=== PATIENT | male | born 1945 | race Caucasian/White ===

== ENCOUNTER 2024-01-19 22:23 | Inpatient (IN) | payer OTHER, SELFPAY ==
[2024-01-19] VITALS (7 sets, daily range): BP systolic 99–127; BP diastolic 47–75; BMI 43.8
[2024-01-19 19:53] LABS: % Basophils 1.1 % (0-2); % Eosinophils 3.4 % (0-6); % Immature Granulocytes 0.4 % (0-0.5); % Monocytes 13.9 % (1.7-9.3); % Neutrophils 64.2 % (42.2-75.2); Absolute Basophils 0.1 10^3/uL (0-0.2); Absolute Eosinophils 0.2 10^3/uL (0-0.7); Absolute Lymphocytes 0.8 10^3/uL (1.2-3.4); Absolute Monocytes 0.7 10^3/uL (0.1-0.6); Hematocrit 34.9 % (39.0-52.0); Hemoglobin 11.5 g/dL (13.0-18.0); Mean Corpuscular Hgb 32.4 pg (27.0-31.0); Mean Corpuscular Volume 98.3 fL (80.0-94.0); Nucleated Red Blood Cells % 0 % (-); Platelet Count 108 10^3/uL (130-400); Red Blood Cell Count 3.55 10^6/uL (4.70-6.10); Red Cell Dist. Width 13.8 % (11.5-14.5); White Blood Cell Count 4.7 10^3/uL (4.8-10.8)
--- NOTE | 2024-01-19 20:00 | ED.GENMED ---
History of Present Illness
General
Chief Complaint: Weakness
Source: patient and family
Exam Limitations: none
Time Seen by Provider: 01/19/24 19:34
Nursing documentation reviewed up to this point in time: agreed with
Travel History
Have you had any contact with someone who has COVID-19?: No
Do you have any symptoms of coronavirus? Fever > 100 degrees, chills, cough, shortness of breath, sore throat, loss of taste or smell, muscle aches, or headache?: No
History of Present Illness
History of Present Illness:
78-year-old male from family via EMS for fatigue trouble ambulating dyspnea on exertion weak with falling trouble getting up
Diabetic hypertensive hypercholesterolemia prostate pacemaker said a right total knee replacement a week or so ago had steroid injection of his left knee by his PCP family states his symptoms preceded this event
Apparently he ambulates about 10 feet he gets cramps in his thighs and gets very dyspneic
He urinates frequently has had increasing leg edema unsure if he is gaining weight
Not currently on a diuretic
Past History
Past History
ED Past Medical History: Arrthythmia, HTN, Hypercholesterolemia and NIDDM
ED Past Surgical History: Cardiac (Pacemaker)
Social History
Tobacco: Non-smoker
Alcohol: None
Drug: None
Personal:
Living: with family
Employment: Retired
Review of Systems
Review of Systems
All Other Systems: Not applicable
Constitutional: Reports fatigue; Denies fever
EENT: Reports no symptoms
Respiratory: Reports trouble breathing
Cardiac: Reports no symptoms; Denies syncope
ABD/GI: Reports no symptoms
: Reports frequency
Musculoskeletal: Reports joint pain and muscle stiffness
Skin: Reports no symptoms
Neurological: Reports weakness
Endocrine: Reports no symptoms
Hematologic/Lymphatic: Reports no symptoms
Phy Exam
Physical Exam
Physical Exam:
Physical Exam
General: Obese slightly dyspneic elderly
Neck: No jaundice
Heart: Regular
Lungs: Bibasilar crackles
Abdomen: Obese
Neuro: alert and oriented moves all
Skin: no rash
Psychiatric: well kept. interactive and cooperative
Extremities: Lower extremity edema as per
Scores
Heart Failure Risk
Heart Failure Risk Score: Yes
History of Stroke or TIA: No
History of intubation for respiratory distress: No
Heart rate on ED arrival >/= 110: No
SaO2 <90% on arrival on room air: No
HR >/=110 during 3min walk test (or too ill to perform test): Yes
ECG has acute ischemic changes: No
Urea >/=12mmol/L (BUN 33.6mg/dL): No
Serum CO2>/=35mmol/L: No
Troponin I or T elevated to AL Level (0.4mg/dL): No
NT-proBNP >/=5,000ng/L (5,000pg/ml): No
HF Risk Score: 2
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
Course
Orders/Labs/Results
Orders:
Orders
01/19/24 19:42
BNP [NT-proBNP] Urgent
Complete Blood Count/With Diff Urgent
Comprehensive Metabolic Panel Urgent
Creatine Phosphokinase Urgent
Comment: ADDON
Magnesium Urgent
Comment: ADDON
01/19/24 19:53
Troponin I Urgent
CR Chest - 2 Views Urgent
Comment:
Reason For Exam: sob
01/19/24 19:54
Add On- LAB Urgent
Tests Added?: magnesium, cpk
Electrocardiogram (*1) Urgent
Reason for Study: Shortness of Breath
EKG- Treatment ONCE
Urinalysis Reflex To Culture Urgent
01/19/24 21:00
Furosemide [Lasix] 60 mg IV NOW STA
Abnormal Lab Results
01/19/24
19:42
WBC 4.7 L 10^3/uL
(4.8-10.8)
RBC 3.55 L 10^6/uL
(4.70-6.10)
Hgb 11.5 L g/dL
(13.0-18.0)
Hct 34.9 L %
(39.0-52.0)
MCV 98.3 H fL
(80.0-94.0)
MCH 32.4 H pg
(27.0-31.0)
Plt Count 108 L 10^3/uL
(130-400)
MPV 11.0 H fL
(7.4-10.4)
Absolute Lymphs (auto) 0.8 L 10^3/uL
(1.2-3.4)
Absolute Monos (auto) 0.7 H 10^3/uL
(0.1-0.6)
Lymphocytes % 17.0 L %
(20.5-51.1)
Monocytes % 13.9 H %
(1.7-9.3)
Chloride 108 H mmol/L
(98-107)
BUN 44 H mg/dl
(9-20)
Glucose 123 H mg/dl
(70-99)
Total Protein 6.1 L g/dl
(6.3-8.2)
Albumin 3.4 L g/dl
(3.5-5.0)
01/19/24 19:42
01/19/24 19:42
Vital Signs
Initial and Last Documented VS:
Initial Vital Signs
Pulse Resp Pulse Ox
77 22 97
01/19/24 19:27 01/19/24 19:27 01/19/24 19:27
Last Documented Vital Signs
Temp Pulse Resp BP Pulse Ox
98.1 F 62 17 124/63 97
01/19/24 19:29 01/19/24 19:30 01/19/24 19:30 01/19/24 19:29 01/19/24 19:31
MDM/Problems Addressed
Differential Diagnosis Includes:
Heart failure deconditioning anemia electrolyte abnormality UTI
MDM/Problems Addressed:
Fatigue shortness of breath dyspnea exertion
Chronic conditions affecting care:
Diabetes hypertension obesity
Acute Exacerbation and/or Progression of Chronic Illness:
Diabetes hypertension obesity
*Radiology
Radiology exam reviewed: preliminary read by ED provider
*Pulse Oximetry
Patient hypoxic: no
*Senior Center Director Interpretation
Rate: normal
Interpretation: normal
Heart Rate: 78
Rhythm: ventricular paced
*Critical Care Note
Total Time (30-74mins, 75-104mins- exclusive of procedures): Not Applicable
Update Note
Update Note:
Update chest x-ray noted proBNP noted not in her system does give some history of heart failure dyspnea on exertion and leg edema not on a diuretic currently symptoms are fairly severe in the sense that he cannot ambulate or function believe will be
beneficial to better over the hospital start him on diuretic
ED Attending Note
-
Portions of this chart may have been created with voice recognition software.� Occasional wrong word or��sound alike� substitutions may have occurred due to the inherent limitations of voice recognition software.
Discharge Plan
Departure
Prescriptions:
No Action
multivitamin Tablet
1 tab PO DAILY
pioglitazone 45 mg Tablet
45 mg PO DAILY
simvastatin 40 mg Tablet
40 mg PO HS
levothyroxine 75 mcg Tablet
75 mcg PO DAILY
tamsulosin 0.4 mg Capsule
0.4 mg PO HS
aspirin 81 mg Tablet,Chewable
81 mg PO DAILY
lisinopril 5 mg Tablet
5 mg PO DAILY
oxybutynin chloride 5 mg Tablet
5 mg PO DAILY
finasteride 5 mg Tablet
5 mg PO DAILY
omeprazole 20 mg Tablet,Delayed Release (Dr/Ec)
20 mg PO DAILY
metoprolol succinate 50 mg Capsule,Sprinkle,Er 24hr
50 mg PO DAILY
Interventions
Interventions:
*Risk Screen - Suicide Last Done: 01/19/24 19:29
*General Assessment Last Done: 01/19/24 19:30
*Neglect/Abuse Screening Last Done: 01/19/24 19:29
ED- Fall Risk Assessment Last Done: 01/19/24 19:29
*ED COVID-19 Vaccine History Last Done: 01/19/24 19:29
ED- Cardiac Assessment Last Done: 01/19/24 19:31
ED- Neurological Assessment Last Done: 01/19/24 19:31
ED- Pulmonary Assessment Last Done: 01/19/24 19:31
Discharge Date and Time
Print Language: VIETNAMESE
[2024-01-19 20:20] LABS: ALT (SGPT) 18 U/L (0-50); AST (SGOT) 24 U/L (17-59); Albumin 3.4 g/dl (3.5-5.0); Alkaline Phosphatase 99 U/L (38-126); Blood Urea Nitrogen 44 mg/dl (9-20); Carbon Dioxide 29 mmol/L (22-30); Chloride 108 mmol/L (98-107); Creatine Phosphokinase 59 U/L (55-170); Estimated Creatinine Clearance 69 ml/min; Glucose 123 mg/dl (70-99); Magnesium 1.7 mg/dl (1.6-2.3); Sodium 138 mmol/L (135-145); Total Bilirubin 0.5 mg/dl (0.2-1.3); Total Protein 6.1 g/dl (6.3-8.2); eGFR 55.88
[2024-01-19 20:30] LABS: NT-proBNP 4420 pg/ml
[2024-01-19] MEDS: LASIX 60 MG IV (21:36)
--- NOTE | 2024-01-19 21:42 | HPS.HSE ---
Family Physician
-
Family Physician: Caesar Peñaloza
Chief Complaint
-
soB with exertion
History of Present Illness
78M No prior visit to DH , HX HTN, HLD, T2DM , Hypothyroid s/p Rt TKR a week ago pw dyspnic on walking 10 feet , increasing Sagrario edema and gaining wt. No prir HX CHF. Not on diuretics at home.
Per daughter
Lives alone
Ambulatory function has tristian progressively limited by SoB for a couple of months
Recently dyspneic with minmal exertion
Denied CP and palpitation
Relatively hypotensive with SB on BB
Elevated pro BNP
CXR suggestive of interstitial Pul edema
@ ER : IV Lasix 60 x1
Medical History
Past Medical History
Past Medical History: Reports HTN, Hypercholesterolemia and Hypothyroidism
Past Surgical History: Reports Orthopedic (Rt TKR )
Social History
Tobacco: Non-smoker
Alcohol: None
Drug: None
Personal:
Living: With Family
Family History
Family History: Not pertinent
Allergies / Home Medications
Allergies reflects when Allergies were last updated in [facility].
Home Medications with original date entered in [facility]
Allergy/Medication List:
Allergies
Allergy/AdvReac Type Severity Reaction Status Date / Time
No Known Allergies Allergy Unverified 01/19/24 19:23
Home Medications
aspirin 81 mg chewable tablet 81 mg PO DAILY 01/19/24
finasteride 5 mg tablet 5 mg PO DAILY 01/19/24
levothyroxine 75 mcg tablet 75 mcg PO DAILY 01/19/24
lisinopril 5 mg tablet 5 mg PO DAILY 01/19/24
metoprolol succinate 50 mg capsule sprinkle, ext. release 24 hr 50 mg PO DAILY 01/19/24
multivitamin 1 tab PO DAILY 01/19/24
omeprazole 20 mg tablet,delayed release 20 mg PO DAILY 01/19/24
oxybutynin chloride 5 mg tablet 5 mg PO DAILY 01/19/24
pioglitazone 45 mg tablet 45 mg PO DAILY 01/19/24
simvastatin 40 mg tablet 40 mg PO HS 01/19/24
tamsulosin 0.4 mg capsule 0.4 mg PO HS 01/19/24
Review of Systems
-
Constitutional: Reports No Symptoms
EENT: Reports No Symptoms
Respiratory: Reports Trouble Breathing
Cardiac: Denies Chest Pain, Diaphoresis, Palpitations or Syncope
Abdomen/GI: Reports No Symptoms
: Reports No Symptoms
Musculoskeletal: Reports Other (b/l Sagrario swelling )
Skin: Reports No Symptoms
Neurological: Reports No Symptoms
Endocrine: Reports No Symptoms
Hematologic/Lymphatic: Reports No Symptoms
Psych: Reports No Symptoms
Physical Exam
Vital Signs
Vital Signs
Temp Pulse Resp BP Pulse Ox
98.1 F 68 18 122/47 97
01/19/24 19:29 01/19/24 21:36 01/19/24 20:30 01/19/24 21:36 01/19/24 20:30
Physical Exam
General: No Apparent Distress and Comfortable
HEENT: NormoCephalic, Anicteric, Moist mucous membranes and Atraumatic
Respiratory: Crackles (bibasilar )
Cardiac: S1/S2, Regular Rhythm and Bradycardia; No Murmur
Breast: Deferred by me
GI: Soft, Non Tender, Non Distended and Normal Bowel Sounds
Rectal: Deferred by Provider
Genito-urinary: Deferred by me
Skin: Warm
Neuro: AO x 3
Psych: Calm
Laboratory Results
-
01/19/24 19:42
01/19/24 19:42
Laboratory Results
Total Bilirubin 0.5 mg/dl (0.2-1.3) 01/19/24 19:42
AST 24 U/L (17-59) 01/19/24 19:42
ALT 18 U/L (0-50) 01/19/24 19:42
Alkaline Phosphatase 99 U/L (38-126) 01/19/24 19:42
Data Reviewed
-
Diagnostic Radiology: Report Reviewed by me
Lab Data: Labs Reviewed by me
Impression/Plan
-
Data
WCC 4.7 Hgb 11.5 Plt 108
Na 138 K 5 Cl 108 CO2 29
BUN 44
Cr 1.3
e GFR 55
BG 123
nl LFTs
pro BNP 4420 - no prior data
Pending TPNI
EKG: pending
CXR:
Small bilateral pleural effusions.
Cardiomegaly
findings suggesting mild interstitial pulmonary edema.
No prior admission to
ASSESSMENT & PLAN
New onset CHF type unknown
Elevated pro BNP, Cardiomegaly and Small bilateral pleural effusions.
- Agree with IV Lasix and continue
- cont. STATE ASSESSED PROPERTIES DIRECTOR Lisinopril and Metoprolol succinate
- daily Wt, IOs and BMP
- ECHO in AM
- OP sleep study
- CBC card consult
Pancytopenia: MDS ?? - patient and family unaware
- no prior data to compare
- trend CBC
- To consider OP Heme eval
Essential HTN
- Relative hypotension
- cont. STATE ASSESSED PROPERTIES DIRECTOR Lisinopril and Metoprolol succinate - with hold parameters
HLD
- cont. ASA and Simvastatin
DMT2
- on Pioglitazone
- add ISS low
Hypothyroid on LT4
- check TSH
Rt TKR yrs ago
S/P IAS of Lt knee weeks ago by PCP
- PT/OT
BPH on Finasteride and tamsulosin
DVT Px: LMWH
Code: Full
IP TLM
[2024-01-19 21:48] LABS: Urine Albumin Negative (Neg - Trace); Urine Bilirubin Negative (Negative); Urine Character Clear (Clear); Urine Color Yellow; Urine Glucose Negative (Negative); Urine Ketone Negative (Negative); Urine Leukocyte Trace (Negative); Urine Nitrite Negative (Negative); Urine Occult Blood Negative (Negative); Urine Specific Gravity 1.015 (<1.030); Urine Urobilinogen Negative (Neg - 1+)
[2024-01-19 21:58] LABS: Troponin I < 0.012 ng/ml
[2024-01-19 21:59] LABS: Urine Red Blood Cell None Seen /HPF (0-2)
[2024-01-20] VITALS (21 sets, daily range): BP systolic 80–155; BP diastolic 37–122; PULSE 65; O2SAT 97–98; BMI 43.7
[2024-01-20] MEDS: LIPITOR PO (01:00)
[2024-01-20] MEDS: FLOMAX PO (01:00)
[2024-01-20 06:52] LABS: % Basophils 1.2 % (0-2); % Eosinophils 3.9 % (0-6); % Immature Granulocytes 0.4 % (0-0.5); % Lymphocytes 18.5 % (20.5-51.1); % Monocytes 13.4 % (1.7-9.3); % Neutrophils 62.6 % (42.2-75.2); Absolute Basophils 0.1 10^3/uL (0-0.2); Absolute Eosinophils 0.2 10^3/uL (0-0.7); Absolute Lymphocytes 0.9 10^3/uL (1.2-3.4); Absolute Monocytes 0.7 10^3/uL (0.1-0.6); Absolute Neutrophils 3.2 10^3/uL (1.4-6.5); Hematocrit 35.5 % (39.0-52.0); Hemoglobin 11.4 g/dL (13.0-18.0); Mean Corp Hgb Conc. 32.1 g/dL (33.0-37.0); Mean Corpuscular Hgb 31.8 pg (27.0-31.0); Mean Corpuscular Volume 99.2 fL (80.0-94.0); Mean Platelet Volume 11.6 fL (7.4-10.4); Nucleated Red Blood Cells % 0 % (-); Platelet Count 111 10^3/uL (130-400); Red Blood Cell Count 3.58 10^6/uL (4.70-6.10); Red Cell Dist. Width 13.9 % (11.5-14.5); White Blood Cell Count 5.1 10^3/uL (4.8-10.8)
[2024-01-20 07:27] LABS: Blood Urea Nitrogen 45 mg/dl (9-20); Carbon Dioxide 31 mmol/L (22-30); Chloride 105 mmol/L (98-107); Estimated Creatinine Clearance 74 ml/min; Glucose 90 mg/dl (70-99); Potassium 4.8 mmol/L (3.5-5.1); Sodium 139 mmol/L (135-145); eGFR > 60.00
[2024-01-20 07:54] LABS: Glucose - Point of Care 88 mg/dl (70-99)
--- NOTE | 2024-01-20 08:30 | CARDSERVLU ---
Echocardiogram with Lumason completed after protocol screening completed. Allergies verified.
Patent IV site: ___Rt AC__
IV site flushed with 0.9% NaCl pre and post administration.
Diluted bolus method utilized to enhance visualization of ventricular lanier.
Total volume given: ___6_ mL
Patient tolerated all procedures well without complications.
[2024-01-20 08:34] LABS: Free T4 1.28 ng/dl (0.78-2.19)
[2024-01-20 08:46] LABS: Glycohemoglobin (HgbA1c) 6.2 % (4.0-5.6)
[2024-01-20] MEDS: LOW STRENGTH ASPIRIN 81 MG PO (09:09)
[2024-01-20] MEDS: ACTOS 45 MG PO (09:09)
[2024-01-20] MEDS: DITROPAN 5 MG PO (09:10)
[2024-01-20] MEDS: LASIX 60 MG IV (09:10)
[2024-01-20] MEDS: SYNTHROID 75 MCG PO (09:10)
[2024-01-20] MEDS: PROTONIX 40 MG PO (09:10)
[2024-01-20] MEDS: TOPROL XL 50 MG PO (09:10)
[2024-01-20] MEDS: ZESTRIL 5 MG PO (09:10)
[2024-01-20] MEDS: DESENEX/MITRAZOL/ZEASORB 1 APPLIC TOPICAL ×2 (09:10→19:57)
[2024-01-20] MEDS: PROSCAR 5 MG PO (09:10)
--- NOTE | 2024-01-20 11:43 | W.PN.HOSP.TC ---
Today's Communication/Plan
-
see plan
Assessment / Plan
Assessment / Plan
ASSESSMENT & PLAN
New onset CHF type unknown
Elevated pro BNP, Cardiomegaly and Small bilateral pleural effusions.
- Agree with IV Lasix and continue
- cont. DIRECTOR MULTIMEDIA Lisinopril and Metoprolol succinate
- daily Wt, IOs and BMP
- ECHO - ef 55%
- OP sleep study
- CBC card consult
Pancytopenia: MDS ?? - patient and family unaware
- no prior data to compare
- trend CBC
- To consider OP Heme eval, pt agreeable to this
Essential HTN
- Relative hypotension
- cont. DIRECTOR MULTIMEDIA Lisinopril and Metoprolol succinate - with hold parameters
HLD
- cont. ASA and Simvastatin
DMT2
- on Pioglitazone
- add ISS low
Hypothyroid on LT4
- check TSH
Rt TKR yrs ago
S/P IAS of Lt knee weeks ago by PCP
- PT/OT
BPH on Finasteride and tamsulosin
DVT Px: LMWH
Code: Full
IP TLM
Anticipated Discharge: > 48 hours
Subjective/Interval History
-
Date of Service: January 20, 2024
pt states interval improvement from yesterday
Objective Data
-
Labs:
Laboratory Results
01/20/24
05:43
WBC 5.1
Hgb 11.4 L
Hct 35.5 L
Plt Count 111 L
Sodium 139
Potassium 4.8
Chloride 105
Carbon Dioxide 31 H
BUN 45 H
Creatinine 1.2
Glucose 90
Calcium 9.0
Vital Signs:
Vital Signs
Temp Pulse Resp BP Pulse Ox
98.5 F 69 13 155/74 98
01/20/24 07:00 01/20/24 06:45 01/20/24 06:45 01/20/24 06:00 01/20/24 09:32
I&O
01/19/24 01/20/24 01/21/24
06:59 06:59 06:59
Output Total 750 / 750
Balance -750 / -750
Review of Systems
-
History Source: Patient
All other systems: Reviewed and negative
Physical Exam
-
General: Well Developed and No Apparent Distress
HEENT: Normocephalic, Atraumatic and Moist Mucous Membranes
Respiratory: Decreased Breath Sounds
Cardiac: Regular Rhythm and S1/S2; Negative Murmur, Rub or Gallop
GI: Soft, Nontender, Nondistended and Normal Bowel Sounds; Negative Organomegaly
Rectal: Deferred by Provider
Musculoskeletal: No Clubbing, No Cyanosis, Edema, Right Lower Extrem and Edema, Left Lower Extrem
Skin: Negative Rash
Neuro: Nonfocal/Grossly Intact
Data Reviewed
-
Diagnostic Radiology: Report Reviewed by me
Ultrasound: Report Reviewed by me
--- NOTE | 2024-01-20 11:46 | CON.CAR ---
Addendum entered and electronically signed by Iris Terrell MD 01/20/24 15:04:
will need outpatient sleep study
Addendum entered and electronically signed by Iris Terrell MD 01/20/24 15:02:
I saw and examined the patient.
The PROGRAM RESEARCH SPECIALIST's note was reviewed and I agree with the note.
Comment: 78yo m with poor follow up presents for ambulatory dysfunction and sob. His daugther is at the bed side and states he stays in bed almost all day, not really getting up and if he does it is with his walker to go to the bathroom only. Had a
ppm in 2016 but hasn't followed up---he hates '[place] and is done going there'.on exam he is morbidly obese and has cyanotic lips. His lungs are cta and rrr no m/r/g. 2+ pitting edema. His echo reviewed with normal lvef, on my review of images I
don't appreciate apical hypokinesis. His device shows NSVT and PAF.
For his HFpEF, we will add GDMT as able and diuresis with IV lasix bid, Dry weigth TBD
PAF: C2V is a 5(age, htn, dm, CHF). Will recommend DOAC, stop asa
NSVT: outpatient stress testing
Medtronic PPM: enroll in outpatient device clinic.
CM c/s for pricing of medicaitons.
will follow
Original Note:
Consultation
Consultation Request
Date/Time Consultation Requested: 01/20/24 1140
Date/Time Consultation Performed: 01/20/24 1240
Requesting Provider: Dr. Mcelroy
Performing Provider: Mariely YUEN for Dr. Terrell
Reason for Consultation: CHF
Medical History
-
Chief Complaint: ambulatory dysfunction, falls
History of Present Illness:
78 y/o male with hypertension, dyslipidemia, diabetes 2, hypothyroidism, hx right knee replacement, and pacemaker. 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 He
is here for evaluation since he has been having ambulatory dysfunction with falls (knees buckle and he brings himself to ground and cannot get up). He recently had a cortisone shot in his left knee. We are consulted for CHF. He has had LAMAR and LE
edema for months. He does not regularly checks weights, but thinks he is normally under 300 lbs. He is currently 321 lbs.
Past Medical History
Past Medical History: HTN, Hypercholesterolemia, Hypothyroidism, NIDDM and Other (pacemaker)
Past Surgical History: Other (hx knee replacement)
Social History
Tobacco: Former Smoker
Alcohol: None
Living: With Family (lives with son)
Family History
Family History: CAD (dad)
Allergies / Home Medications
Allergy/AdvReac Type Severity Reaction Status Date / Time
No Known Allergies Allergy Unverified 01/19/24 19:23
�Medication �Instructions �Recorded �Confirmed �Type
aspirin 81 mg chewable tablet 81 mg PO DAILY 01/19/24 01/19/24 History
finasteride 5 mg tablet 5 mg PO DAILY 01/19/24 01/19/24 History
levothyroxine 75 mcg tablet 75 mcg PO DAILY 01/19/24 01/19/24 History
lisinopril 5 mg tablet 5 mg PO DAILY 01/19/24 01/19/24 History
metoprolol succinate 50 mg capsule 50 mg PO DAILY 01/19/24 01/19/24 History
sprinkle, ext. release 24 hr
multivitamin 1 tab PO DAILY 01/19/24 01/19/24 History
omeprazole 20 mg tablet,delayed 20 mg PO DAILY 01/19/24 01/19/24 History
release
oxybutynin chloride 5 mg tablet 5 mg PO DAILY 01/19/24 01/19/24 History
pioglitazone 45 mg tablet 45 mg PO DAILY 01/19/24 01/19/24 History
simvastatin 40 mg tablet 40 mg PO HS 01/19/24 01/19/24 History
tamsulosin 0.4 mg capsule 0.4 mg PO HS 01/19/24 01/19/24 History
Review of Systems
-
History Source: Patient
All other systems: Negative unless noted
Respiratory: Trouble Breathing
Musculoskeletal: Edema
Neurological: Weakness
Physical Exam
Vital Signs
Temp Pulse Resp BP Pulse Ox
98.5 F 69 13 155/74 98
01/20/24 07:00 01/20/24 06:45 01/20/24 06:45 01/20/24 06:00 01/20/24 09:32
Lab Results
01/20/24 05:43
01/20/24 05:43
Troponin I < 0.012 ng/ml 01/19/24 21:07
Qhu-F-Kjgfmnperzu Pept 4420 pg/ml 01/19/24 19:42
Physical Exam
General: Well Developed and No Apparent Distress
HEENT: Normocephalic and Anicteric
Respiratory: Clear and Non Labored Respirations
Cardiac: Regular Rhythm and Peripheral Edema (+1-2 BLE edema)
Skin: Warm and Dry
Neuro: AO x 3
Psych: Calm
Impression / Plan
-
Ambulatory dysfunction:
-PT/OT consulted
Acute HFpEF:
-BNP 4420, CXR suggestive of excess fluid as below
-echo as below
-agree with IV Lasix, which requires intensive monitoring- will change to BID
-CM consult for SGLT2 inhibitor pricing
Pacemaker:
-records requested to find out more- should have this interrogated. I told him he definitely needs cardiac follow-up and pacemaker needs routine monitoring.
HTN:
-monitor with diuresis
Data Reviewed
-
EKG: Tracing Personally Visualized and interpreted (AV paced)
Radiology: Report Reviewed by me (CXR: Small bilateral pleural effusions. Cardiomegaly, with findings suggesting mild interstitial pulmonary edema.)
Medical Tests (Nuc Med, Echo etc): Report Reviewed by me (Echo 01/20/24: Mildly dilated LV (RICCO 59) with mild LVH and EF 50-55%. Cannot exclude mild apical hypokinesis 2. Aortic sclerosis without stenosis 3. Borderline pulmonary artery
pressures (PA systolic estimate 35-40 mmHg))
Labs: Labs Reviewed by me
[2024-01-20 13:40] LABS: Glucose - Point of Care 97 mg/dl (70-99)
--- NOTE | 2024-01-20 14:43 | W.PN.UPDATE ---
Addendum entered and electronically signed by WILFRID Ross 01/20/24 15:15:
Discussed OAC with patient/family, who are agreeable. CM to clarence Ramirez. The device interrogation is in the chart. ASA was just taking for primary prevention per patient.
Original Note:
Update Note
Progress Note Update
Medtronic pacemaker interrogated. Functioning appropriately. PAF and NSVT noted. For PAF, will start Eliquis for OAC. Will stop aspirin. For NSVT, continue metoprolol, and OP stress test.
--- NOTE | 2024-01-20 15:12 | CM ---
Addendum entered by Kailee Thurman 01/20/24 15:46:
Gave daughter a list of family and internal medicine doctors. She maybe looking for a new PCP for her father.
Original Note:
Reviewed chart. Met with Mr. Perez, his daughter and [id number] to review dischrge plans. He states prior to admission his son resides with him in a spilt level home with one step to enter. He states he has three steps own the the rec.
room, four steps to the main area and seven step to the bedroom/full bathroom. He states prior to admission he ambulates with a walker and independent with adls. He states he has a walker at home. He states he has [facility] in the distant past and went
to [facility] for SNF/Rehab. in 2016. He has a prescription plan ans uses [facility]. Telephone call to his insurance to check co-pays for Farxiga, Jardiand and Eliquis. Farxiga is $47. 00 a month, Jardiance is $47.00 a month and Abd
Eliquis is $47.00 a month. He can use the one month free coupon for Farxiga, Jardiance and Eliquis. Placed the Eliquis coupon in the red discharge folder. Will need to see his current functional level to see if he will have any skilled care needs.
Medical work-up in progress. The discharge plan is to return home with his son and [facility] Services when medically stable.
--- NOTE | 2024-01-20 15:33 | PTCARENOTE ---
Received patient from ED holding area to room 2249, daughter was at the bedside. Patient oriented to room and plan of care. Grossly incontinent of urine when PT came to work with her. Required assist of two to transfer from the bed to the chair.
Family in visiting, call brown within reach.
[2024-01-20] MEDS: LASIX IV (16:36)
--- NOTE | 2024-01-20 16:46 | PTCARENOTE ---
Patient sitting oob in the chair, happy to be oob. BP running in the 80's/50's, patient is asymptomatic. Rechecked with a manual BP which was 88/55. Patient is due for IV Katlin silvestre WEB SYSTEMS DEVELOPER notified, will hold for now.
[2024-01-20 18:10] LABS: Glucose - Point of Care 95 mg/dl (70-99)
[2024-01-20] MEDS: ELIQUIS 5 MG PO (19:55)
--- NOTE | 2024-01-20 21:29 | PTCARENOTE ---
Pt rec'd at change of shift, av paced on telemetry. lungs clear but diminished in bases. Eliquis teaching given. Pt grossly incont of urine, depends changed. turned and rep in bed. call brown within reach
[2024-01-20 22:07] LABS: Glucose - Point of Care 110 mg/dl (70-99)
[2024-01-20] MEDS: LIPITOR 20 MG PO (22:18)
[2024-01-20] MEDS: FLOMAX 0.400000000000000022 MG PO (22:18)
[2024-01-21] VITALS (12 sets, daily range): BP systolic 73–148; BP diastolic 42–89; PULSE 65; O2SAT 96; BMI 43.7; BMI 40.8
[2024-01-21 05:09] LABS: % Basophils 1.4 % (0-2); % Eosinophils 4.8 % (0-6); % Immature Granulocytes 0.2 % (0-0.5); % Lymphocytes 25.2 % (20.5-51.1); % Monocytes 14.7 % (1.7-9.3); % Neutrophils 53.7 % (42.2-75.2); Absolute Basophils 0.1 10^3/uL (0-0.2); Absolute Eosinophils 0.2 10^3/uL (0-0.7); Absolute Lymphocytes 1.1 10^3/uL (1.2-3.4); Absolute Monocytes 0.7 10^3/uL (0.1-0.6); Absolute Neutrophils 2.4 10^3/uL (1.4-6.5); Hematocrit 35.2 % (39.0-52.0); Hemoglobin 11.4 g/dL (13.0-18.0); Mean Corp Hgb Conc. 32.4 g/dL (33.0-37.0); Mean Corpuscular Volume 98.9 fL (80.0-94.0); Mean Platelet Volume 11.3 fL (7.4-10.4); Nucleated Red Blood Cells % 0 % (-); Platelet Count 107 10^3/uL (130-400); Red Blood Cell Count 3.56 10^6/uL (4.70-6.10); Red Cell Dist. Width 13.8 % (11.5-14.5); White Blood Cell Count 4.4 10^3/uL (4.8-10.8)
[2024-01-21 05:38] LABS: Blood Urea Nitrogen 47 mg/dl (9-20); Calcium 8.8 mg/dl (8.4-10.2); Carbon Dioxide 30 mmol/L (22-30); Chloride 103 mmol/L (98-107); Estimated Creatinine Clearance 68 ml/min; Glucose 97 mg/dl (70-99); Potassium 4.4 mmol/L (3.5-5.1); Sodium 137 mmol/L (135-145); eGFR 55.88
[2024-01-21 08:13] LABS: Glucose - Point of Care 109 mg/dl (70-99)
--- NOTE | 2024-01-21 08:23 | W.PN.CD ---
Today's Communication / Plan
-
Cont diuresis
Started SGLT2i
Consider MRA tomorrow
Impression / Plan
-
Ambulatory dysfunction:
-PT/OT consulted
Acute HFpEF:
-BNP 4420, CXR suggestive of excess fluid as below
-echo as below
-agree with IV Lasix, which requires intensive monitoring- will change to BID
-started empagliflozin
- consider MRA tomorrow
AF new
- continue Eliquis, HRs controlled
Pacemaker:
-records requested to find out more- should have this interrogated. I told him he definitely needs cardiac follow-up and pacemaker needs routine monitoring.
HTN:
-monitor with diuresis
TTE January 20, 2024: CONCLUSIONS
1. Mildly dilated LV (RICCO 59) with mild LVH and EF 50-55%. Cannot exclude
mild apical hypokinesis
2. Aortic sclerosis without stenosis
3. Borderline pulmonary artery pressures (PA systolic estimate 35-40 mmHg)
Physical Exam
Vital Signs/Labs
Vital Signs
Temp Pulse Resp BP Pulse Ox
98.2 F 54 14 148/76 93
01/21/24 07:48 01/21/24 05:00 01/21/24 07:48 01/21/24 04:46 01/21/24 04:45
01/20/24 01/21/24 01/22/24
06:59 06:59 06:59
Actual Weight 322 lb 12.108 oz 322 lb 4 oz
01/21/24 04:51
01/21/24 04:50
Magnesium 1.7 mg/dl (1.6-2.3) 01/19/24 19:42
Free T4 1.28 ng/dl (0.78-2.19) 01/20/24 05:43
01/19/24
19:42
Nco-I-Kvssgucdrpo Pept 4420
LAB Results
01/19/24
21:07
Troponin I < 0.012
Physical Exam
Constitutional: No acute distress
EENT: Anicteric
Cardiovascular: Rhythm & rate is regular and Pedal edema present
Respiratory: Respiratory effort normal and Lungs clear to auscul.
GI: Soft
Neuro/Psych: AO x 3
Data Reviewed
-
Date of Service: January 21, 2024
EKG: Tracing Personally Visualized and interpreted (paced)
Echo: Report Reviewed by me
Labs: Labs Reviewed by me
[2024-01-21] MEDS: PROTONIX 40 MG PO (08:26)
[2024-01-21] MEDS: LASIX 60 MG IV ×2 (08:26→17:02)
[2024-01-21] MEDS: TOPROL XL 50 MG PO (08:26)
[2024-01-21] MEDS: DITROPAN 5 MG PO (08:26)
[2024-01-21] MEDS: DESENEX/MITRAZOL/ZEASORB 1 APPLIC TOPICAL ×2 (08:29→20:36)
[2024-01-21] MEDS: ACTOS 45 MG PO (08:29)
[2024-01-21] MEDS: SYNTHROID 75 MCG PO (08:29)
[2024-01-21] MEDS: ZESTRIL 5 MG PO (08:29)
[2024-01-21] MEDS: PROSCAR 5 MG PO (08:29)
[2024-01-21] MEDS: ELIQUIS 5 MG PO ×2 (08:29→20:35)
[2024-01-21] MEDS: JARDIANCE 10 MG PO (09:26)
[2024-01-21 11:54] LABS: Glucose - Point of Care 126 mg/dl (70-99)
--- NOTE | 2024-01-21 14:12 | W.PN.HOSP.TC ---
Today's Communication/Plan
-
cont diuresis.
Assessment / Plan
Assessment / Plan
ASSESSMENT & PLAN
New onset CHF type unknown
Elevated pro BNP, Cardiomegaly and Small bilateral pleural effusions.
- Agree with IV Lasix and continue
- cont. MIDDLEWARE ARCHITECT Lisinopril and Metoprolol succinate
- daily Wt, IOs and BMP
- ECHO - ef 55%
- OP sleep study
- CBC card consult appreciated
PAF - new dx
started on eliquis.
Pancytopenia: MDS ?? - patient and family unaware
- no prior data to compare
- trend CBC
- To consider OP Heme eval, pt agreeable to this
Essential HTN
- Relative hypotension
- cont. MIDDLEWARE ARCHITECT Lisinopril and Metoprolol succinate - with hold parameters
HLD
- cont. ASA and Simvastatin
DMT2
- on Pioglitazone
- add ISS low
Hypothyroid on LT4
Rt TKR yrs ago
S/P IAS of Lt knee weeks ago by PCP
- PT/OT
BPH on Finasteride and tamsulosin
DVT Px
Code: Full
IP TLM
Anticipated Discharge: > 48 hours
Subjective/Interval History
-
Date of Service: January 21, 2024
pt states LE edema continues to improve.
Objective Data
-
Labs:
Laboratory Results
01/21/24 01/21/24
04:50 04:51
WBC 4.4 L
Hgb 11.4 L
Hct 35.2 L
Plt Count 107 L
Sodium 137
Potassium 4.4
Chloride 103
Carbon Dioxide 30
BUN 47 H
Creatinine 1.3
Glucose 97
Calcium 8.8
Vital Signs:
Vital Signs
Temp Pulse Resp BP Pulse Ox
98.2 F 63 18 124/88 95
01/21/24 11:42 01/21/24 11:42 01/21/24 11:42 01/21/24 08:29 01/21/24 11:42
I&O
01/20/24 01/21/24 01/22/24
06:59 06:59 06:59
Intake Total 720 / 720 360 / 360
Output Total 750 / 750 600 / 600
Balance -750 / -750 120 / 120 360 / 360
Review of Systems
-
History Source: Patient
All other systems: Reviewed and negative
Physical Exam
-
General: Well Developed and No Apparent Distress
HEENT: Normocephalic, Atraumatic and Moist Mucous Membranes
Respiratory: Clear to Auscultation
Cardiac: Regular Rhythm and S1/S2; Negative Murmur, Rub or Gallop
GI: Soft, Nontender, Nondistended and Normal Bowel Sounds; Negative Organomegaly
Rectal: Deferred by Provider
Musculoskeletal: No Clubbing, No Cyanosis, Edema, Right Lower Extrem and Edema, Left Lower Extrem
Skin: Negative Rash
Neuro: Nonfocal/Grossly Intact
Data Reviewed
-
Labs: Labs Reviewed by me, Discussed with Patient and Discussed with Family
[2024-01-21 17:07] LABS: Glucose - Point of Care 108 mg/dl (70-99)
--- NOTE | 2024-01-21 17:44 | PTCARENOTE ---
Rec't pt this AM. AAO x3. OOB x2 with walker into bathroom and chair. BP low this afternoon. Notified WILFRID Mcdaniel. OK to give Lasix 60mg IV if BP greater than 90. After approx 30min BP improved to 107 systolic. lasix given. Pt incontinent of
large amts of urine. Unable to use urinal. Report feeling better, remains with some weakness but improving. Pt educated on heart failure extensively plus fall risk factors.
--- NOTE | 2024-01-21 21:54 | PTCARENOTE ---
Pt rec'd at change of shift with family at bedside. No c/o pain. b/p 70's systolic, retaken twice. pt denied feeling dizzy, AV paced on telemetry. bedrest maintained. B/p improved to 90's systolic. Pt grossly incontinent of urine. partial bath given.
[2024-01-21 22:13] LABS: Glucose - Point of Care 104 mg/dl (70-99)
[2024-01-21] MEDS: FLOMAX 0.400000000000000022 MG PO (22:17)
[2024-01-21] MEDS: LIPITOR 20 MG PO (22:17)
[2024-01-22 03:47] VITALS: BP 130/70
[2024-01-22 04:14] LABS: % Basophils 1.3 % (0-2); % Eosinophils 4.4 % (0-6); % Immature Granulocytes 0.2 % (0-0.5); % Lymphocytes 21.4 % (20.5-51.1); % Monocytes 14.1 % (1.7-9.3); % Neutrophils 58.6 % (42.2-75.2); Absolute Basophils 0.1 10^3/uL (0-0.2); Absolute Eosinophils 0.2 10^3/uL (0-0.7); Absolute Lymphocytes 1.2 10^3/uL (1.2-3.4); Absolute Monocytes 0.8 10^3/uL (0.1-0.6); Absolute Neutrophils 3.2 10^3/uL (1.4-6.5); Hematocrit 38.5 % (39.0-52.0); Hemoglobin 12.3 g/dL (13.0-18.0); Mean Corp Hgb Conc. 31.9 g/dL (33.0-37.0); Mean Corpuscular Hgb 31.5 pg (27.0-31.0); Mean Corpuscular Volume 98.7 fL (80.0-94.0); Mean Platelet Volume 11.1 fL (7.4-10.4); Nucleated Red Blood Cells % 0 % (-); Platelet Count 116 10^3/uL (130-400); Red Cell Dist. Width 13.8 % (11.5-14.5); White Blood Cell Count 5.5 10^3/uL (4.8-10.8)
[2024-01-22 04:37] LABS: Blood Urea Nitrogen 56 mg/dl (9-20); Calcium 9.2 mg/dl (8.4-10.2); Carbon Dioxide 33 mmol/L (22-30); Chloride 97 mmol/L (98-107); Estimated Creatinine Clearance 43 ml/min; Glucose 108 mg/dl (70-99); Potassium 4.2 mmol/L (3.5-5.1); Sodium 138 mmol/L (135-145); eGFR 33.32
--- NOTE | 2024-01-22 06:35 | W.PN.HOSP.TC ---
Today's Communication/Plan
-
.
Assessment / Plan
Assessment / Plan
Physical Exam
-
General: Well Developed and No Apparent Distress, obese.
HEENT: Normocephalic, Atraumatic and Moist Mucous Membranes
Respiratory: limited, no rales.
Cardiac: S1S2
GI: Soft, Nontender, Nondistended and Normal Bowel Sounds
Rectal: No rectal bleeding
Musculoskeletal: No Clubbing, No Cyanosis, Edema, mild in both legs
Skin: Negative Rash
Neuro: Nonfocal/Grossly Intact
Psych: no agitation
ASSESSMENT & PLAN
# Acute HFrEF
Echo showed LVEF 50-55%
s/p Lasix TX
He presented with elevated pro BNP, Cardiomegaly and Small bilateral pleural effusions.
- Holding some BP& Lasix today due to Low BP and FELIX
- OP sleep study
- CBC card consult appreciated
PAF - new dx
started on Eliquis.
# FELIX. 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
Could be related to low BP
Will also rule out retention, placed bladder scan protocol and Order renal US
Patient denies history of prostate disease. He has 3 medications, finasteride, oxybutynin, Flomax given to him by his a primary care doctor.
# Upon admission he was noted to have low platelets, anemia and leukopenia. Currently his white count is normal. This seems to be consistent with underlying liver disease more than MDS
Will check abdominal ultrasound for hepatic steatosis /organomegaly
Can follow-up with hematology in the office
#Essential HTN
Hypotensive overnight. Hold medications , okay to give beta-blockers
HLD
- cont. ASA and Simvastatin
DMT2
-Hold Pioglitazone because of renal insufficiency
- add ISS low
Hypothyroid on LT4
Rt TKR yrs ago
S/P IAS of Lt knee weeks ago by PCP
- PT/OT
BPH on Finasteride and tamsulosin
DVT Px
Code: Full
Total time spent to see the patient, examine the patient on the floor, review data and lab results, discuss treatment plan with patient, nursing staff around 55 minutes.
Anticipated Discharge: > 48 hours
Subjective/Interval History
-
Date of Service: January 22, 2024
No chest pain
No sob
No fevers
Objective Data
-
Labs:
Laboratory Results
01/22/24
03:56
WBC 5.5
Hgb 12.3 L
Hct 38.5 L
Plt Count 116 L
Sodium 138
Potassium 4.2
Chloride 97 L
Carbon Dioxide 33 H
BUN 56 H
Creatinine 2.0 H
Glucose 108 H
Calcium 9.2
Vital Signs:
Vital Signs
Temp Pulse Resp BP Pulse Ox
98 F 64 20 130/70 92
01/22/24 03:47 01/22/24 04:00 01/22/24 03:47 01/22/24 03:47 01/21/24 22:22
I&O
01/20/24 01/21/24 01/22/24
06:59 06:59 06:59
Intake Total 720 / 720 700 / 700
Output Total 750 / 750 600 / 600 700 / 700
Balance -750 / -750 120 / 120 0 / 0
[2024-01-22 07:36] VITALS: BP 96/53
[2024-01-22 08:06] LABS: Glucose - Point of Care 107 mg/dl (70-99)
[2024-01-22] MEDS: PROSCAR 5 MG PO (08:14)
[2024-01-22] MEDS: ELIQUIS 5 MG PO ×2 (08:14→20:51)
[2024-01-22] MEDS: DESENEX/MITRAZOL/ZEASORB 1 APPLIC TOPICAL ×2 (08:14→20:51)
[2024-01-22] MEDS: DITROPAN 5 MG PO (08:14)
[2024-01-22] MEDS: PROTONIX 40 MG PO (08:14)
[2024-01-22] MEDS: SYNTHROID 75 MCG PO (08:17)
--- NOTE | 2024-01-22 08:36 | W.PN.CD ---
Addendum entered and electronically signed by Shailesh Spears MD 01/22/24 08:46:
-
-
I ordered NS IVF 750 ml over 4 hours
-
-
Original Note:
Today's Communication / Plan
-
Hold meds
Trend Cr/BUN
Monitor K and tele
Impression / Plan
-
New Acute FELIX
- Severe
- Hold meds
- May be from too aggressive diuresis
Ambulatory dysfunction
- per medicine
Acute HFpEF
- Meds all hold for FELIX
- Later likely use low dose loop diuretic, MRA, and SGLT inhibitor
- Later move GERALD-I to either ARNI or ARB
- Goal weight not determined
PAF
- [id number] at least 4 (HF, HTN, age1)
- Now on Eliquis
- Rate not an issue as he has second degree AV block
MDT pacer
- Rhythm now sinus with second degree AV block and almost all V paced
- Leads Ok
- Battery about 2 or so years
- MVP mode on, but mostly V paced
- Tele with dropped beats c/w MVP
HTN
Morbid obesity
- BMI 40.8
Subjective:
Denies CP or dyspnea
Physical Exam
Vital Signs/Labs
Vital Signs
Temp Pulse Resp BP Pulse Ox
98.5 F 66 20 96/53 94
01/22/24 07:33 01/22/24 07:36 01/22/24 07:33 01/22/24 07:36 01/22/24 07:33
01/21/24 01/22/24 01/23/24
06:59 06:59 06:59
Actual Weight 146.17 kg 136.305 kg
01/22/24 03:56
01/22/24 03:56
Magnesium 1.7 mg/dl (1.6-2.3) 01/19/24 19:42
Free T4 1.28 ng/dl (0.78-2.19) 01/20/24 05:43
01/19/24
19:42
Blk-I-Ctnqjofriot Pept 4420
LAB Results
01/19/24
21:07
Troponin I < 0.012
Physical Exam
Constitutional: No acute distress
EENT: Anicteric
Cardiovascular: Rhythm & rate is regular and Pedal edema present (mild)
Respiratory: Respiratory effort normal and Lungs clear to auscul.
GI: Soft and Distention absent
Neuro/Psych: Alert
Data Reviewed
-
Date of Service: January 22, 2024
--- NOTE | 2024-01-22 09:19 | PTCARENOTE ---
Assumed care of pt from night RN. Pt received awake and alert, sitting up in bed. VSs, CM shows A/V pacing, POX 94% on RA. Bladder scan done as ordered = 121 ml's after large amount of incontinence. Pt denies any pain or discomfort at this time.
To US for Renal study.
[2024-01-22] MEDS: NSS 1000 IV (10:29)
--- NOTE | 2024-01-22 10:34 | PTCARENOTE ---
Saline bolus given as per MAR as ordered.
[2024-01-22 11:52] LABS: Glucose - Point of Care 137 mg/dl (70-99)
[2024-01-22 11:59] VITALS: BP 104/60
--- NOTE | 2024-01-22 14:18 | CM ---
Reviewed chart. Met with Mr. Perez and his daughter to review discharge plans. Reviewed SNF/Rehab. with them. Gave him the SNF list to review. He has selected [facility] and [facility] . Referral sent to [facility] and [facility] to check
on bed availability. He will need pre-cert with his insurance. Medical work-up in progress. The discharge plan is to go to SNF/Rehab. if bed available and approved by insurance when medically stable.
--- NOTE | 2024-01-22 14:52 | PN.CDI ---
Addendum entered and electronically signed by Judd Martinez MD 01/22/24 15:01:
Acute HFrEF
Original Note:
CDI
- -
CDI:
Physician Documentation Request
Admit Date: 01/19/24 22:23
Dear Doctor Michelle,
Patient admitted with acute CHF.
01/21 PN, 'Acute HFrEF ....Echo showed LVEF 50-55%.'
01/20 Cardiology note, 'Acute HFpEF....TTE January 20, 2024: CONCLUSIONS 1. Mildly dilated LV (RICCO 59) with mild LVH and EF
50-55%.
Due to conflicting documentation, please clarify in your note the type of CHF being treated:
Acute diastolic CHF
Acute systolic CHF
Other
Use of terms such as suspected, likely, concern for, or probable (associated with a specific diagnosis that is being evaluated, monitored, or treated as if it exists) are acceptable and can be coded in the inpatient setting, when documented at the
time of discharge.
Thank you,
Kimberly ROSADO,RN,CCDS
CDI Specialist
Available via [place] text
Please use your independent medical judgment in providing your response.
[2024-01-22 15:34] VITALS: BP 120/61
[2024-01-22 16:23] LABS: Glucose - Point of Care 91 mg/dl (70-99)
[2024-01-22] MEDS: TOPROL XL 50 MG PO (17:42)
[2024-01-22 19:26] VITALS: BP 105/52
[2024-01-22 21:47] LABS: Glucose - Point of Care 90 mg/dl (70-99)
[2024-01-22] MEDS: LIPITOR 20 MG PO (22:40)
[2024-01-22] MEDS: FLOMAX 0.400000000000000022 MG PO (22:40)
[2024-01-22 22:44] VITALS: BP 117/64
--- NOTE | 2024-01-22 23:52 | PTCARENOTE ---
Pt with no c/o pain. 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 Grossly incontinent of large amt of urine. skin with moisture redness in groin folds. Miconazole powder applied. Pt repositioned in bed with pillows.
[2024-01-23] VITALS (10 sets, daily range): BP systolic 104–133; BP diastolic 55–98; PULSE 64–65; O2SAT 96; BMI 40.4
[2024-01-23 04:42] LABS: % Eosinophils 4.9 % (0-6); % Immature Granulocytes 0.2 % (0-0.5); % Lymphocytes 21.7 % (20.5-51.1); % Monocytes 13.2 % (1.7-9.3); Absolute Basophils 0.1 10^3/uL (0-0.2); Absolute Eosinophils 0.2 10^3/uL (0-0.7); Absolute Lymphocytes 1.1 10^3/uL (1.2-3.4); Absolute Monocytes 0.7 10^3/uL (0.1-0.6); Absolute Neutrophils 2.9 10^3/uL (1.4-6.5); Hematocrit 37.8 % (39.0-52.0); Hemoglobin 11.8 g/dL (13.0-18.0); Mean Corp Hgb Conc. 31.2 g/dL (33.0-37.0); Mean Corpuscular Volume 99.2 fL (80.0-94.0); Mean Platelet Volume 11.1 fL (7.4-10.4); Nucleated Red Blood Cells % 0 % (-); Platelet Count 107 10^3/uL (130-400); Red Blood Cell Count 3.81 10^6/uL (4.70-6.10); Red Cell Dist. Width 13.6 % (11.5-14.5); White Blood Cell Count 4.9 10^3/uL (4.8-10.8)
[2024-01-23 05:08] LABS: Blood Urea Nitrogen 52 mg/dl (9-20); Carbon Dioxide 31 mmol/L (22-30); Chloride 99 mmol/L (98-107); Estimated Creatinine Clearance 50 ml/min; Glucose 107 mg/dl (70-99); Potassium 4.3 mmol/L (3.5-5.1); Sodium 137 mmol/L (135-145)
--- NOTE | 2024-01-23 06:26 | W.PN.HOSP.TC ---
Today's Communication/Plan
-
.
Assessment / Plan
Assessment / Plan
Physical Exam
-
General: Well Developed and No Apparent Distress, obese.
HEENT: Normocephalic, Atraumatic and Moist Mucous Membranes
Respiratory: limited, no rales.
Cardiac: S1S2
GI: Soft, Nontender, Nondistended and Normal Bowel Sounds
Rectal: No rectal bleeding
Musculoskeletal: No Clubbing, No Cyanosis, Edema, mild in both legs
Skin: Negative Rash
Neuro: Nonfocal/Grossly Intact
Psych: no agitation
ASSESSMENT & PLAN
# Acute HFrEF
Echo showed LVEF 50-55%
s/p Lasix TX
He presented with elevated pro BNP, Cardiomegaly and Small bilateral pleural effusions.
- Held BP& Lasix due to Low BP and FELIX. Can resume Lasix today
- OP sleep study
- CBC card consult appreciated
PAF - new dx
started on Eliquis.
# Obesity BMI 40
sedentary lifestyle.
Counseled pt to loose weight. Obesity impacts his health negatively.
# FELIX. 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
FELIX due to low BP
Creatinine is coming down to 1.7
US of the kidneys showed no hydronephrosis
Placed bladder scan protocol
Patient denied history of prostate disease. He has 3 medications, finasteride, oxybutynin, Flomax given to him by his a primary care doctor.
# Upon admission he was noted to have low platelets, anemia and leukopenia. Currently his white count is normal. This seems to be consistent with underlying liver disease more than MDS
Abdominal ultrasound did not show hepatic steatosis /organomegaly. He might need liver scan as OP. for now, c/w monitoring, follow-up with hematology in the office
#Essential HTN
Not more hypotension, resume Lasix, c/w BB.
HLD
- cont. ASA and Simvastatin
DMT2
- Held Pioglitazone because of renal insufficiency
- add ISS low
Hypothyroid on LT4
Rt TKR yrs ago
S/P IAS of Lt knee weeks ago by PCP
- PT/OT
BPH on Finasteride and tamsulosin
DVT Px
Code: Full
Total time spent to see the patient, examine the patient on the floor, review data and lab results, discuss treatment plan with patient, nursing staff around 57 minutes.
Anticipated Discharge: 24 - 48 hours
Subjective/Interval History
-
Date of Service: January 23, 2024
No chest pain
No sob
No abd pain
Objective Data
-
Labs:
Laboratory Results
01/23/24
04:26
WBC 4.9
Hgb 11.8 L
Hct 37.8 L
Plt Count 107 L
Sodium 137
Potassium 4.3
Chloride 99
Carbon Dioxide 31 H
BUN 52 H
Creatinine 1.7 H
Glucose 107 H
Calcium 9.0
Vital Signs:
Vital Signs
Temp Pulse Resp BP Pulse Ox
97.5 F 63 20 133/80 93
01/23/24 04:11 01/23/24 04:15 01/23/24 04:11 01/23/24 04:15 01/23/24 04:15
I&O
01/21/24 01/22/24 01/23/24
06:59 06:59 06:59
Intake Total 720 / 720 700 / 700 750 / 750
Output Total 600 / 600 700 / 700
Balance 120 / 120 0 / 0 750 / 750
[2024-01-23 07:25] LABS: Glucose - Point of Care 116 mg/dl (70-99)
[2024-01-23] MEDS: DESENEX/MITRAZOL/ZEASORB 1 APPLIC TOPICAL ×2 (08:25→19:24)
[2024-01-23] MEDS: SYNTHROID 75 MCG PO (08:25)
[2024-01-23] MEDS: DITROPAN 5 MG PO (08:25)
[2024-01-23] MEDS: PROSCAR 5 MG PO (08:25)
[2024-01-23] MEDS: ELIQUIS 5 MG PO ×2 (08:25→19:24)
[2024-01-23] MEDS: PROTONIX 40 MG PO (08:25)
--- NOTE | 2024-01-23 08:59 | W.PN.CD ---
Addendum entered and electronically signed by Eleazar Jasso MD 01/23/24 12:05:
78 yo male with chronic HFPEF. In setting of FELIX, lasix, lisinopril, jardiance were held; and given some IVF yesterday. Overall, he feels well with minimal LAMAR walking hallway. Cr has improved. Exam with RRR, no murmurs, trace LE edema. Tele:
intermittent AV pacing.
PO lasix resumed by hospitalist this AM.
Lisinopril and jardiance remain on hold.
Trend Cr and weight.
Original Note:
Today's Communication / Plan
-
continue to hold meds due to FELIX.
continue Eliquis 5mg BID.
Impression / Plan
-
New Acute FELIX
- Improving, creatinine is 1.7 today
- Continue to hold meds.
- May be from too aggressive diuresis.
Acute HFpEF
- Meds on hold for FELIX.
- Later likely use low dose loop diuretic, MRA, and SGLT inhibitor.
- As outpatient then can move GERALD-I to either ARNI or ARB.
- Goal weight not determined.
PAF
- [id number] at least 4 (HF, HTN, age 1).
- Now on Eliquis 5mg BID, continue.
- Rate not an issue as he has a PPM for second degree AV block.
MDT pacer
- Rhythm now sinus with second degree AV block and almost all V paced.
- Leads stable.
- Battery about 2 or so years.
- MVP mode on, but mostly V paced.
- Tele with dropped beats c/w MVP.
HTN - improved s/p IVF yesterday.
- meds on hold due to FELIX.
- monitor.
Morbid obesity
- BMI 40.8
Subjective:
feels well, offers no complaints this am.
holding meds as FELIX improves.
continue Eliquis 5mg BID.
Physical Exam
Vital Signs/Labs
Vital Signs
Temp Pulse Resp BP Pulse Ox
98.1 F 63 20 133/80 95
01/23/24 07:20 01/23/24 04:15 01/23/24 07:20 01/23/24 04:15 01/23/24 07:20
01/22/24 01/23/24 01/24/24
06:59 06:59 06:59
Actual Weight 136.305 kg 135 kg
01/23/24 04:26
01/23/24 04:26
Magnesium 1.7 mg/dl (1.6-2.3) 01/19/24 19:42
Free T4 1.28 ng/dl (0.78-2.19) 01/20/24 05:43
01/19/24
19:42
Mtr-L-Dyphwkftubl Pept 4420
Physical Exam
Constitutional: No acute distress
EENT: Anicteric and Moist mucous membranes
Cardiovascular: Rhythm & rate is regular
Respiratory: Respiratory effort normal and Lungs clear to auscul.
GI: Soft, Non tender and Normal bowel sounds
Neuro/Psych: AO x 3
Other: Skin (warm, dry)
Data Reviewed
-
Date of Service: January 23, 2024
Medical Decision Making: External Notes and Reviewed Test Results
EKG: Tracing Personally Visualized and interpreted
Echo: Report Reviewed by me
Labs: Labs Reviewed by me
[2024-01-23] MEDS: LASIX 40 MG PO (09:09)
[2024-01-23 11:31] LABS: Glucose - Point of Care 118 mg/dl (70-99)
--- NOTE | 2024-01-23 16:07 | PTCARENOTE ---
Pt sat OOB in chair for most of the day today, neptali well, incontinent large amts urine.
--- NOTE | 2024-01-23 16:17 | CM ---
Reviewed chart. Telephone call to [facility] Admission to check on bed availability. [facility] Admission had a bed today, but will need to check in A.M. if any bed available for tomorrow. Telephone call to [facility] Admissions to check on bed
availability. Awaiting response from [facility]. Will need pre-cert with his insurance. Met with Mr. Perez and his [id number] to review discharge plans. Reviewed wheelchair transportation and out of pocket cost. Medical
work-up in progress. The discharge plan is to go to SNF /Rehab. if bed available and approved by insurance when medically stable.
[2024-01-23 17:38] LABS: Glucose - Point of Care 103 mg/dl (70-99)
[2024-01-23] MEDS: TOPROL XL 50 MG PO (18:44)
[2024-01-23] MEDS: FLOMAX 0.400000000000000022 MG PO (22:30)
[2024-01-23] MEDS: LIPITOR 20 MG PO (22:30)
[2024-01-23 22:32] LABS: Glucose - Point of Care 114 mg/dl (70-99)
[2024-01-24 03:10] VITALS: BP 138/66
[2024-01-24 03:53] LABS: Blood Urea Nitrogen 43 mg/dl (9-20); Calcium 9.1 mg/dl (8.4-10.2); Carbon Dioxide 30 mmol/L (22-30); Chloride 100 mmol/L (98-107); Estimated Creatinine Clearance 57 ml/min; Glucose 116 mg/dl (70-99); Potassium 4.2 mmol/L (3.5-5.1); Sodium 136 mmol/L (135-145); eGFR 47.06
[2024-01-24 05:47] VITALS: BMI 39.8
--- NOTE | 2024-01-24 06:34 | W.PN.HOSP.TC ---
Today's Communication/Plan
-
dc
Assessment / Plan
Assessment / Plan
Physical Exam
-
General: Well Developed and No Apparent Distress, obese.
HEENT: Normocephalic, Atraumatic and Moist Mucous Membranes
Respiratory: limited, no rales.
Cardiac: S1S2
GI: Soft, Nontender, Nondistended and Normal Bowel Sounds
Rectal: No rectal bleeding
Musculoskeletal: No Clubbing, No Cyanosis, Edema, mild in both legs
Skin: Negative Rash
Neuro: Nonfocal/Grossly Intact
Psych: no agitation
ASSESSMENT & PLAN
# Acute HFrEF
Echo showed LVEF 50-55%
s/p Lasix TX
He presented with elevated pro BNP, Cardiomegaly and Small bilateral pleural effusions.
- Held BP& Lasix due to Low BP and FELIX. Resumed Lasix with good bp tolerance
Will need to f/w cardiology and PCP to add other GDMTfor HF.
- OP sleep study
- CBC card consult appreciated
PAF - new dx
started on Eliquis.
# Obesity BMI 40
sedentary lifestyle.
Counseled pt to loose weight. Obesity impacts his health negatively.
# FELIX. 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
FELIX due to low BP
Creatinine is coming down to 1.5
US of the kidneys showed no hydronephrosis
Placed bladder scan protocol
Patient denied history of prostate disease. He has 3 medications, finasteride, oxybutynin, Flomax given to him by his a primary care doctor.
# Upon admission he was noted to have low platelets, anemia and leukopenia. Currently his white count is normal. This seems to be consistent with underlying liver disease more than MDS
Abdominal ultrasound did not show hepatic steatosis /organomegaly. He might need liver scan as OP. for now, c/w OP f/u with PCP. Also can follow-up with hematology in the office
#Essential HTN
Not more hypotension, c/w Lasix, c/w BB.
HLD
- cont. ASA and Simvastatin
DMT2
- Can resume Pioglitazone.
- add ISS low
Hypothyroid on LT4
Rt TKR yrs ago
S/P IAS of Lt knee weeks ago by PCP
- PT/OT
BPH on Finasteride and tamsulosin
DVT Px
Code: Full
Total discharge time spent to see the patient, examine the patient on the floor, review data and lab results, discuss discharge plan with patient, nursing staff around 65 minutes.
Anticipated Discharge: Today
Subjective/Interval History
-
Date of Service: January 24, 2024
No events
did well over night
no chest pain or sob
Objective Data
-
Labs:
Laboratory Results
01/24/24
03:14
Sodium 136
Potassium 4.2
Chloride 100
Carbon Dioxide 30
BUN 43 H
Creatinine 1.5 H
Glucose 116 H
Calcium 9.1
Vital Signs:
Vital Signs
Temp Pulse Resp BP Pulse Ox
97.8 F 62 18 138/66 93
01/24/24 03:10 01/24/24 04:00 01/24/24 03:10 01/24/24 03:10 01/24/24 03:10
I&O
01/22/24 01/23/24 01/24/24
06:59 06:59 06:59
Intake Total 700 / 700 750 / 750
Output Total 700 / 700 100 / 100
Balance 0 / 0 750 / 750 -100 / -100
[2024-01-24 07:20] VITALS: BP 111/63
[2024-01-24 07:53] LABS: Glucose - Point of Care 99 mg/dl (70-99)
[2024-01-24] MEDS: DESENEX/MITRAZOL/ZEASORB 1 APPLIC TOPICAL (08:40)
[2024-01-24] MEDS: LASIX 40 MG PO (08:41)
[2024-01-24] MEDS: DITROPAN 5 MG PO (08:41)
[2024-01-24] MEDS: PROSCAR 5 MG PO (08:41)
[2024-01-24] MEDS: PROTONIX 40 MG PO (08:41)
[2024-01-24] MEDS: SYNTHROID 75 MCG PO (08:42)
[2024-01-24] MEDS: ELIQUIS 5 MG PO (08:42)
[2024-01-24 09:41] VITALS: BP 113/68
[2024-01-24 09:50] VITALS: BP 113/68; PULSE 64; O2SAT 98
[2024-01-24 10:00] VITALS: BP 113/68; PULSE 64; O2SAT 98
--- NOTE | 2024-01-24 10:23 | W.PN.CD ---
Today's Communication / Plan
-
We will arrange cardiology followup
For now just add Lasix 40 one time a day
See below for more plans as outpatient
Impression / Plan
-
New Acute FELIX
- Improved
- May be from too aggressive diuresis
- Tolerating once a day Lasix now
Acute HFpEF
- For now just add Lasix one time a day
- As outpatient we can move GERALD-I to ARB or ARNI and add MRA and SGLT inhibitor.
- Goal weight not determined but perhaps today's weight 132 kg.
PAF
- [id number] at least 4 (HF, HTN, age 1).
- Now on Eliquis 5mg BID, continue.
- Rate not an issue as he has a PPM for second degree AV block.
MDT pacer
- Rhythm now sinus with second degree AV block and almost all V paced.
- Leads stable.
- Battery about 2 or so years.
- MVP mode on, but mostly V paced.
- Tele with dropped beats c/w MVP.
HTN - improved s/p IVF yesterday.
- meds on hold due to FELIX.
- monitor.
Morbid obesity
- BMI 40.8
Subjective:
OK for discharge
We will arrange cardiology
Physical Exam
Vital Signs/Labs
Vital Signs
Temp Pulse Resp BP Pulse Ox
97.8 F 63 14 113/68 96
01/24/24 07:18 01/24/24 10:00 01/24/24 07:18 01/24/24 09:41 01/24/24 09:53
01/23/24 01/24/24 01/25/24
06:59 06:59 06:59
Actual Weight 135 kg 132.903 kg
01/23/24 04:26
01/24/24 03:14
Magnesium 1.7 mg/dl (1.6-2.3) 01/19/24 19:42
Free T4 1.28 ng/dl (0.78-2.19) 01/20/24 05:43
01/19/24
19:42
Pdl-A-Ylmrumibpwh Pept 4420
Physical Exam
Cardiovascular: Rhythm & rate is regular and Pedal edema is absent
Respiratory: Respiratory effort normal and Lungs clear to auscul.
GI: Soft and Distention absent
Neuro/Psych: Alert
Data Reviewed
-
Date of Service: January 24, 2024
[2024-01-24 11:55] LABS: Glucose - Point of Care 130 mg/dl (70-99)
[2024-01-24 12:07] VITALS: BP 100/60
--- NOTE | 2024-01-24 12:49 | CM ---
Reviewed neena. Telephone call to [facility] to check on bed availability. [facility] Admission states they do not have a bed available. Telephone call to [facility] admission who confirms ability to accept today. Telephone call to [facility]
to get auth. for SNF/Rehab. Approved from 01/24/24 to 01/28/24. Next review to . Approved from 01/24/24 to 01/28/24. Scheduled wheelchair van with [facility] for 2:30 p.m. transfer date abd time. Reviewed above with Mr. Perez and
his daughter. Medical work-up in progress. The discharge plan is to go to [facility] when medically stable.
Gave daughter information on [facility] and [facility] Transportation.
--- NOTE | 2024-01-24 14:30 | PTCARENOTE ---
PT discharged to [facility] rehab, report given to Elver at [facility]. Pt left via wheelchair van
--- NOTE | 2024-01-24 14:35 | W.DCSUMMARY ---
Discharge Summary
Discharge Data
Date of Admission: 01/19/24
Date of Discharge: 01/24/24
-
Pending Results: No
Hospital Course
78 years old male who presented to the emergency room with ambulatory dysfunction or shortness of breath. Patient was diagnosed with acute heart failure with reduced ejection fraction. Echocardiogram showed left ventricular ejection fraction of
50 to 55% with mild apical hypokinesis, aortic sclerosis without stenosis, borderline pulmonary artery pressure around 35-40 mmHg. Patient was given intravenous furosemide, breathing status started to improve.He was started on low-dose GERALD
inhibitor, lisinopril 5 mg. His systolic blood pressure dropped to around 90-79. Kidney function went down. Creatinine went up to 2.0. Patient had creatinine 1.3 on admission with possible underlying chronic kidney disease stage II. Lasix was
held and he was given intravenous fluid. Ultrasound of the kidneys did not show hydronephrosis and he did not have retention by bladder scan protocol. Kidney function improved with creatinine went down to 1.5. Lasix was resumed with good
stabilization of blood pressure. He had paroxysmal atrial fibrillation and was started on Eliquis therapy. He tolerated Eliquis well. Patient verbalized understanding to potential benefits and side effects of systemic anticoagulation therapy.
Patient was advised that he would need to follow-up with braider setter to slowly introduce further goal-directed medical therapy treatment for heart failure in the office as his blood pressure/kidney function would tolerate. Patient was evaluated by
physical therapy. Patient remained hemodynamically stable and was discharged to group home facility in a stable condition.
Discharge Plan
-
Patient Disposition: Snf/SNF
Discharge Diagnosis/Procedures: Acute heart failure with reduced ejection fraction
Acute kidney injury, possible underlying chronic kidney disease stage II
Paroxysmal atrial fibrillation, started on Eliquis
Status post pacemaker
Primary hypertension
Morbid obesity, BMI 39-40
Diet: Low Fat and Low Sodium
Blood Work: BMP & CBC in 3-4 days
Instructions: *PCP/Other Inspector Glass Or Mirror Heart Failure Instructions
Referrals:
[facility] [Outside]
Caesar Peñaloza MD [Family Provider] - in one to two weeks
Shailesh Spears MD [Active] - in two to four weeks
Prescriptions:
New
oxybutynin chloride 5 mg Tablet
5 mg PO DAILY Qty: 30 0RF
Eliquis 5 mg Tablet
5 mg PO BID Qty: 60 0RF
metoprolol succinate 50 mg Tablet Extended Release 24 Hr
50 mg PO QPM Qty: 30 0RF
furosemide 40 mg Tablet
40 mg PO DAILY Qty: 30 0RF
Continued
multivitamin Tablet
1 tab PO DAILY
pioglitazone 45 mg Tablet
45 mg PO DAILY
simvastatin 40 mg Tablet
40 mg PO DAILY
levothyroxine 75 mcg Tablet
75 mcg PO DAILY
tamsulosin 0.4 mg Capsule
0.4 mg PO DAILY
finasteride 5 mg Tablet
5 mg PO DAILY
acetaminophen [Tylenol] 325 mg Tablet
650 mg PO DAILYPRN PRN (Reason: mild pain)
oxybutynin chloride 5 mg Tablet Extended Release 24hr
5 mg PO DAILY
omeprazole 20 mg Capsule,Delayed Release(Dr/Ec)
20 mg PO DAILY
Discontinued
lisinopril 5 mg Tablet
5 mg PO HS
metoprolol succinate 50 mg Tablet Extended Release 24 Hr
50 mg PO DAILY
aspirin 81 mg Tablet,Delayed Release (Dr/Ec)
81 mg PO HS
naproxen sodium [Aleve] 220 mg Tablet
440 mg PO DAILY PRN (Reason: mild pain)
Discharge Orders:
Discharge Patient (As Directed); Ordered 01/24/24
Ordered By: Judd Martinez
Care Plan Goals
Care Plan Goals:
Problem: Readiness for enhanced knowledge related to diagnosis and treatment plan
Goal: Understand your diagnosis and treatment plan needs, including medications if applicable.
Instructions: Know your diagnosis, underlying causes and treatment plan options, including medications if applicable. Consult with your health care team to learn about your diagnosis and treatment plan, including medications if applicable.
Discharge Date and Time
Print Language: PORTUGUESE
--- NOTE | 2024-01-24 14:48 | PN.CDI ---
Addendum entered and electronically signed by Judd Martinez MD 01/24/24 15:01:
Insignificant abnormal lab findings
Original Note:
CDI
- -
CDI:
Physician Documentation Request
Admit Date: 01/19/24 22:23
Dear Doctor Michelle,
Patient admitted with acute CHF.
01/23 PN, 'Upon admission he was noted to have low platelets, anemia and leukopenia.'
01/18 WBC 4.7, RBC 3.55 and platelet count 108.
01/20 WBC 4.4, RBC 3.56 and platelet count 107.
Based on the above, please clarify in the progress notes, the appropriate diagnosis, if significant, that supports the above abnormalities and additional evaluation, monitoring and/or treatment rendered:
Pancytopenia
Insignificant abnormal lab findings
Other
Use of terms such as suspected, likely, concern for, or probable (associated with a specific diagnosis that is being evaluated, monitored, or treated as if it exists) are acceptable and can be coded in the inpatient setting, when documented at the
time of discharge.
Thank you,
Kimberly ROSADO,RN,CCDS
CDI Specialist
Available via Dola text
Please use your independent medical judgment in providing your response.
--- NOTE | 2024-01-24 15:28 | W.HF.CON ---
Heart Failure
- LV Function
Left ventricular function study result: LV Ejection fraction >40%
Ejection Fraction Percentage: 50-55
- ARNI
Patient already on ARNI: No
Heart Failure ARNI Not Indicated: LV Ejection Fraction >/= 40%
- ACEI/ARB
Patient already on ACEI/ARB: No
Heart Failure ACEI/ARB Not Indicated: LV Ejection Fraction > 40%
- Beta Simeon
Patient already on Evidence Based Beta Simeon: Yes
- Mineralocorticord Receptor Antagonist
Patient already on MRA: No
Heart Failure MRA Not Indicated: LV Ejection Fraction > 40%
- SGLT-2 Inhibitor
Patient already on SGLT-2 Inhibitor: No
Heart Failure SGLT-2 Inhibitor Not Indicated: LV Ejection Fraction >40%
- Afib Anticoagulation
Patient already on Anticoagulation for Afib: Yes
- NYHA CHF Classification
NYHA CHF Classification Level: Class III - Symptoms w/ min exertion, interferes w/ nml daily activity
- ACC/AHA Stage
ACC/AHA Stage: Stage C: Symptomatic Heart Failure
== END 2024-01-24 15:43 | DRG 291 ==
LOC: IVU 22:23
PROVIDERS: Internal Medicine; Internal Medicine Cardiovascular Disease; ADMITTING PHYSICIAN Internal Medicine; ATTENDING PHYSICIAN Internal Medicine; CONSULT PHYSICIAN Internal Medicine Cardiovascular Disease; EMERGENCY PHYSICIAN Emergency Medicine; FAMILY PHYSICIAN Family Medicine
DX: I11.0 Hypertensive heart disease with heart failure (principal); I50.23 Acute on chronic systolic (congestive) heart failure; N17.9 Acute kidney failure, unspecified; Z68.41 Body mass index [BMI] 40.0-44.9, adult; I48.0 Paroxysmal atrial fibrillation; E66.01 Morbid (severe) obesity due to excess calories; Z79.01 Long term (current) use of anticoagulants; Z79.82 Long term (current) use of aspirin; Z95.0 Presence of cardiac pacemaker
CPT/HCPCS: 71046; 76700; 80048; 80053; 81003; 81015; 82550; 82962; 83036; 83735; 83880; 84439; 84443; 84484; 85025; 93005; 93306; 96374; 97116; 97163; 97167; 97530; 97535; 99285; Q9950

== ENCOUNTER → 2024-01-27 10:15 | Outpatient (REF) | payer OTHER, SELFPAY ==
[2024-01-27 11:18] LABS: % Basophils 1.8 % (0-2); % Eosinophils 3.9 % (0-6); % Immature Granulocytes 0.4 % (0-0.5); % Lymphocytes 17.3 % (20.5-51.1); % Monocytes 13.6 % (1.7-9.3); Absolute Basophils 0.1 10^3/uL (0-0.2); Absolute Eosinophils 0.2 10^3/uL (0-0.7); Absolute Monocytes 0.8 10^3/uL (0.1-0.6); Absolute Neutrophils 3.6 10^3/uL (1.4-6.5); Hematocrit 36.3 % (39.0-52.0); Hemoglobin 11.8 g/dL (13.0-18.0); Mean Corp Hgb Conc. 32.5 g/dL (33.0-37.0); Mean Corpuscular Hgb 31.9 pg (27.0-31.0); Mean Corpuscular Volume 98.1 fL (80.0-94.0); Mean Platelet Volume 11.9 fL (7.4-10.4); Nucleated Red Blood Cells % 0 % (-); Platelet Count 117 10^3/uL (130-400); Red Cell Dist. Width 13.4 % (11.5-14.5); White Blood Cell Count 5.7 10^3/uL (4.8-10.8)
[2024-01-27 11:35] LABS: Blood Urea Nitrogen 43 mg/dl (9-20); Calcium 9.3 mg/dl (8.4-10.2); Carbon Dioxide 30 mmol/L (22-30); Chloride 101 mmol/L (98-107); Glucose 121 mg/dl (70-99); Sodium 138 mmol/L (135-145)
== END ==
LOC: OLABP 10:15
PROVIDERS: ATTENDING PHYSICIAN Student in an Organized Health Care Education/Training Program
DX: J90 Pleural effusion, not elsewhere classified (principal); I48.0 Paroxysmal atrial fibrillation; I11.0 Hypertensive heart disease with heart failure
CPT/HCPCS: 36415; 80048; 85025

== ENCOUNTER → 2024-01-30 08:58 | Outpatient (REF) | payer OTHER, SELFPAY ==
[2024-01-30 10:26] LABS: Blood Urea Nitrogen 38 mg/dl (9-20); Carbon Dioxide 29 mmol/L (22-30); Chloride 102 mmol/L (98-107); Glucose 104 mg/dl (70-99); Potassium 4.2 mmol/L (3.5-5.1); Sodium 138 mmol/L (135-145); eGFR 55.88
== END ==
LOC: OLABP 08:58
PROVIDERS: ATTENDING PHYSICIAN Student in an Organized Health Care Education/Training Program
DX: I50.9 Heart failure, unspecified (principal); I51.7 Cardiomegaly; J90 Pleural effusion, not elsewhere classified; I48.0 Paroxysmal atrial fibrillation; N17.9 Acute kidney failure, unspecified; I11.0 Hypertensive heart disease with heart failure; E11.9 Type 2 diabetes mellitus without complications
CPT/HCPCS: 36415; 80048

== ENCOUNTER 2024-08-09 06:31 | Emergency (ER) | payer OTHER, SELFPAY ==
[2024-08-09 06:34] VITALS: BP 137/74; BMI 38.9
[2024-08-09 06:35] VITALS: BP 137/74
[2024-08-09 07:00] VITALS: BP 114/73
--- NOTE | 2024-08-09 07:10 | EDRN ---
the pts son was brought back to the pts room
--- NOTE | 2024-08-09 07:40 | ED.GENMED ---
History of Present Illness
General
Chief Complaint: Fall
Source: patient and family
Time Seen by Provider: 08/09/24 07:13
History of Present Illness
History of Present Illness:
79-year-old male with past medical history of hypertension, hyperlipidemia, [id number] diabetes, atrial fibrillation presenting to the emergency department for evaluation after an accidental trip and fall stating his right knee gave out
causing him to fall fall landing on his butt and hitting his back against the door frame. Patient does not believe he had any head injury but does note some skin tears to the right forearm. Patient and family believe his tetanus is up-to-date.
Patient denies any symptoms at this time. He notes 2 falls within the last 6 months. Ambulates with a walker and states he has good compliance with using his walker. No other concerns at this time.
Past History
Past History
ED Past Medical History: Arrthythmia, HTN, Hypercholesterolemia and NIDDM
ED Past Surgical History: Cardiac (Pacemaker) and Orthopedic
Social History
Tobacco: Non-smoker
Alcohol: None
Drug: None
Personal:
Living: with family
Employment: Retired
Review of Systems
Review of Systems
All Other Systems: ROS reviewed and negative except as documented in HPI and ROS
Phy Exam
Physical Exam
Physical Exam:
GENERAL: Alert , in no apparent distress
HEAD: NCAT
EYE: clear conjunctiva
NECK: Supple
ENT: mmm.
CARDIAC: Regular rate and rhythm .
LUNGS: Clear breath sounds bilaterally, no acute respiratory distress, no wheezes/rales/rhonchi
NEUROLOGICAL: Alert and oriented, no focal neuro deficits
SKIN: Warm and dry, multiple superficial skin tears from proximal to distal forearm. no active bleeding
MUSCULOSKELETAL: No edema, well perfused. FROM all extremities
PSYCH: Normal and appropriate interaction.
Scores
Heart Failure Risk
Heart Failure Risk Score: Not Applicable
Heart Score for Chest Pain Patients
STEMI patient?: Not applicable
Withdrawal Assessment of Alcohol
Withdrawal Assessment Completed?: Not applicable
Course
Orders/Labs/Results
Orders:
Orders
08/09/24 07:22
CT Head W/o Iv Contrast Urgent
Comment:
Reason For Exam: fall, on eliquis
Vital Signs
Initial and Last Documented VS:
Initial Vital Signs
Temp Pulse Resp BP Pulse Ox
98.1 F 78 10 137/74 96
08/09/24 06:34 08/09/24 06:34 08/09/24 06:34 08/09/24 06:34 08/09/24 06:34
Last Documented Vital Signs
Temp Pulse Resp BP Pulse Ox
98.1 F 62 14 137/74 95
08/09/24 06:34 08/09/24 06:45 08/09/24 06:45 08/09/24 06:35 08/09/24 07:02
MDM/Problems Addressed
Differential Diagnosis Includes:
Mechanical trip and fall, skin tears, ICH, no concern for fracture
MDM/Problems Addressed:
79-year-old male presenting to the emergency department for evaluation following an accidental fall this morning occurring around 5 AM resulting in multiple skin tears to the right forearm. Patient is on Eliquis due to history of atrial
fibrillation. Denies head injury but given his age and mechanism will obtain a head CT for further evaluation. Skin tears were repaired with Steri-Strips. Nonadherent gauze pads and Sita wrap were applied over the Steri-Strips. Will ambulate
patient in the ER prior to discharge home to assess for safety. Disposition pending.
*Radiology
Radiology exam reviewed: radiology read reviewed
*Pulse Oximetry
Patient hypoxic: no
*Critical Care Note
Total Time (30-74mins, 75-104mins- exclusive of procedures): Not Applicable
Patient Management
Escalation/DeEscalation of care consider admission/obs:
Patients CT without acute findings. He ambulated with walker throughout ED unassisted. Feels comfortable going home. Aware of return precautions. Stable for d/c home
ED Attending Note
-
Portions of this chart may have been created with voice recognition software.� Occasional wrong word or��sound alike� substitutions may have occurred due to the inherent limitations of voice recognition software.
Discharge Plan
Departure
Patient Disposition: Home (Routine Discharge)
Date of Disposition: 08/09/24
Time of Disposition: 08:55
Patient with high blood pressure during this ER visit?: No
Discharge Problem:
Accidental fall, Skin tear of right forearm without complication
Instructions: Preventing falls in adults
Prescriptions:
No Action
multivitamin Tablet
1 tab PO DAILY
pioglitazone 45 mg Tablet
45 mg PO DAILY
simvastatin 40 mg Tablet
40 mg PO DAILY
levothyroxine 75 mcg Tablet
75 mcg PO DAILY
tamsulosin 0.4 mg Capsule
0.4 mg PO DAILY
finasteride 5 mg Tablet
5 mg PO DAILY
acetaminophen [Tylenol] 325 mg Tablet
650 mg PO DAILYPRN PRN (Reason: mild pain)
oxybutynin chloride 5 mg Tablet Extended Release 24hr
5 mg PO DAILY
omeprazole 20 mg Capsule,Delayed Release(Dr/Ec)
20 mg PO DAILY
furosemide 40 mg Tablet
40 mg PO DAILY Qty: 30 0RF
metoprolol succinate 50 mg Tablet Extended Release 24 Hr
50 mg PO QPM Qty: 30 0RF
Eliquis 5 mg Tablet
5 mg PO BID Qty: 60 0RF
Referrals:
UNKNOWN - PT DOES,NOT KNOW [Family Provider] -
Interventions
Interventions:
*Risk Screen - Suicide Last Done: 08/09/24 06:34
*General Assessment Last Done: 08/09/24 06:34
*Neglect/Abuse Screening Last Done: 08/09/24 06:34
ED- Fall Risk Assessment Last Done: 08/09/24 07:02
*ED COVID-19 Vaccine History Last Done: 08/09/24 06:34
ED-Musculoskeletal Assessment Last Done: 08/09/24 07:02
ED- Neurological Assessment Last Done: 08/09/24 07:02
ED-Skin Assessment Last Done: 08/09/24 07:02
Discharge Date and Time
Print Language: BAHAMIAN
[2024-08-09 12:17] VITALS: BP 141/85
== END 2024-08-09 12:19 | disposition home or self-care (01) ==
LOC: EMR 06:31
PROVIDERS: EMERGENCY PHYSICIAN Student in an Organized Health Care Education/Training Program
DX: S51.811A Laceration without foreign body of right forearm, initial encounter (principal); W01.198A Fall on same level from slipping, tripping and stumbling with subsequent striking against other object, initial encounter; I10 Essential (primary) hypertension; E78.00 Pure hypercholesterolemia, unspecified; E11.9 Type 2 diabetes mellitus without complications; I48.91 Unspecified atrial fibrillation; Z79.01 Long term (current) use of anticoagulants
CPT/HCPCS: 99284; 70450

== ENCOUNTER 2025-09-03 09:29 | Day surgery (SDC) | payer OTHER, SELFPAY ==
[2025-09-03] VITALS (7 sets, daily range): BP systolic 84–118; BP diastolic 48–81; BMI 38.7
[2025-09-03 10:14] LABS: Glucose - Point of Care 140 mg/dl (70-99)
[2025-09-03 10:24] LABS: Hematocrit 49.4 % (39.0-52.0); Hemoglobin 16.0 g/dL (13.0-18.0); Mean Corp Hgb Conc. 32.4 g/dL (33.0-37.0); Mean Corpuscular Volume 96.5 fL (80.0-94.0); Platelet Count 107 10^3/uL (130-400); Red Cell Dist. Width 13.2 % (11.5-14.5)
[2025-09-03 10:32] LABS: ALT (SGPT) 19 U/L (0-50); AST (SGOT) 22 U/L (17-59); Albumin 4.0 g/dl (3.5-5.0); Alkaline Phosphatase 84 U/L (38-126); Blood Urea Nitrogen 33 mg/dl (9-20); Calcium 9.4 mg/dl (8.4-10.2); Carbon Dioxide 33 mmol/L (22-30); Chloride 102 mmol/L (98-107); Estimated Creatinine Clearance 73 ml/min; Glucose 142 mg/dl (70-99); Potassium 4.5 mmol/L (3.5-5.1); Sodium 138 mmol/L (135-145); Total Protein 7.1 g/dl (6.3-8.2); eGFR > 60.00
--- NOTE | 2025-09-03 12:10 | ITS.CL.PACE ---
Transportation Superintendent - Pacemaker Implant
Pacemaker Implant
Procedure Report:
Date of Procedure: September 03, 2025.
Procedures: Dual chamber pacemaker generator change. Pacemaker pulse generator explantation and pacemaker pulse generator implantation.
Indication: Pacemaker at [facility] from natural battery depletion. 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 The patient is pacemaker dependent.
Performing physician: Shailesh Spears MD, [facility].
Implant: Pacemaker Pulse Generator: Medtronic; Model# [id number]; Serial# [id number].
Explanted Pacemaker Pulse Generator (Implanted 10/28/2015): Medtronic; Model# [id number]; Serial# [id number].
Retained RA Lead (Implanted 10/28/2015): Medtronic: Model# [id number]; Serial# [id number].
Retained RV Lead (Implanted 10/28/2015): Medtronic; Model# 5076; Serial# [id number].
Technique: A time out was performed. The procedure site was identified. The patient was anesthetized by the anesthesia service. Preoperative cefazolin was administered before the skin incision. The patient was prepped and draped in the usual
fashion. Local anesthetic was applied to the left prepectoral subcutaneous tissue. A 3 inch incision was made over the pulse generator. The capsule was entered with Bovie cautery. The old pacemaker pulse generator was explanted. No Bovie cautery was
applied to the lead system. The leads were appropriately attached to the new device. The pocket was irrigated with antibiotic solution. Hemostasis was excellent. The device and leads were placed in the pocket. The incision was closed in three layers
with absorbable suture. Steri-strips and a silver impregnated dressing were applied. The estimated blood loss was 2 mL. There were no complications. No fluoroscopy.
Lead Analysis:
RA lead: Afib: 1.2 mV; Threshold: n/a; Impedance: 513 ohms.
RV lead: R: none; Threshold: 0.75 V @ 0.4 ms; Impedance: 608 ohms.
Final Programming: VVIR 60 - 130 bpm.
Conclusion: Uncomplicated Medtronic pacemaker change. The pacemaker system is MRI conditional.
Recommendation: Routine post pacemaker care.
cc: WILFRID Santizo and Eleazar Jasso MD.
== END 2025-09-03 13:43 | disposition home or self-care (01) ==
LOC: CATH 09:29
PROVIDERS: ATTENDING PHYSICIAN Internal Medicine Cardiovascular Disease; FAMILY PHYSICIAN Nurse Practitioner Primary Care; OTHER PHYSICIAN Internal Medicine
DX: Z45.010 Encounter for checking and testing of cardiac pacemaker pulse generator [battery] (principal); I44.2 Atrioventricular block, complete; I48.19 Other persistent atrial fibrillation; I50.32 Chronic diastolic (congestive) heart failure; I10 Essential (primary) hypertension; E11.9 Type 2 diabetes mellitus without complications; E78.00 Pure hypercholesterolemia, unspecified
CPT/HCPCS: 33228; 80053; 82962; 85027; 93005; C1785